=== PATIENT | male | born 1940 | race Two or more races ===

== ENCOUNTER 2017-03-11 10:14 | Emergency (ER) | payer OTHER ==
[2017-03-11 10:38] VITALS: BP 120/77; PULSE 82; RESP 20; TEMP 98.1; O2SAT 94
--- NOTE | 2017-03-11 11:09 | EDPHY ---
H & P Time Seen by Provider: 03/11/17 10:37 HPI/ROS: Chief complaint. Tick bite HPI. 76-year-old male presents emergency department with retained tick product. He believes he got the tick about 3 days ago. Yesterday he noticed it swollen next to his left nipple. He removed it himself but there is a small black object under the skin that appears to be retained part of the tech. He has no systemic complaints including fever or rash. ROS Constitutional. no fever/chills, no weakness Eyes. no problems with vision ENT. no sore throat, no nasal drainage Cardiovascular. no chest pain Respiratory. no shortness of breath, no cough Abdominal. no abdominal pain, no nausea/vomiting, no diarrhea . no problems urinating MS. no calf pain/swelling, no neck/back pain, no joint pain Skin. Tick bite Lymph. no swollen glands Neuro. no headache, no dizziness, no difficulty walking or with speech Past Medical/Surgical History: Cholecystectomy Social History: , nonsmoker, no alcohol Smoking Status: Former smoker Physical Exam: General Appearance: Alert well-developed male mild distress vital signs stable Eyes: Pupils equal and round no pallor or injection. ENT, Mouth: Mucous membranes are moist. Respiratory: There are no retractions, lungs are clear to auscultation. Cardiovascular: Regular rate and rhythm. Gastrointestinal: Abdomen is soft and nontender, no masses, bowel sounds normal. Neurological: Awake and alert, sensory and motor exams grossly normal. Skin: Some erythema and ecchymosis around the left nipple. There is a smell black apparent retained foreign body. Musculoskeletal: Neck is supple nontender. Extremities symmetrical, full range of motion. Psychiatric: Patient is oriented X 3, there is no agitation. Constitutional: Initial Vital Signs Temperature (C) 36.7 C 03/11/17 10:35 Heart Rate 82 03/11/17 10:35 Respiratory Rate 20 03/11/17 10:35 Blood Pressure 120/77 03/11/17 10:35 O2 Sat (%) 94 03/11/17 10:35 O2 Delivery Mode Room Air Allergies/Adverse Reactions: No Known Allergies Allergy (Unverified 03/11/17 10:37) Home Medications: Medication Instructions Recorded Aspirin 81mg (*) 03/11/17 Ativan 03/11/17 Crestor 03/11/17 Doxycycline Hyclate 100 mg PO BID #14 tab 03/11/17 Lexapro 03/11/17 traZODone 03/11/17 Medical Decision Making Procedures: 1% lidocaine with epinephrine is infiltrated. Using a 15 blade the black foreign body is removed. Copious saline irrigation is performed. No further evidence of foreign body. Antibiotic ointment and Band-Aid were applied ED Course/Re-evaluation: Patient and I discussed treatment plan including criteria for return importance of follow-up further evaluation. He expresses understanding and agreement Differential Diagnosis: I have considered tick fever, recommend spotted fever, Lyme disease. This appears to be retained body part from the tick. Departure - Departure Disposition: Home, Routine, Self-Care Clinical Impression: Tick bite Qualifiers: Encounter type: initial encounter Qualified Code(s): W57.XXXA - Bitten or stung by nonvenomous insect and other nonvenomous arthropods, initial encounter Condition: Good Instructions: Tick Bite (ED) Additional Instructions: Keep area clean and dry. Antibiotic ointment twice daily and Band-Aid for the next 2-3 days. Doxycycline as antibiotic. Return for fever, rash. Recheck in 2-3 days if not improved Referrals: GIOVANY GAN [Other] - As per Instructions Prescriptions: Doxycycline Hyclate 100 mg PO BID #14 tab
== END 2017-03-11 11:23 | disposition home or self-care (01) ==
LOC: CED 10:14
PROC: 0JC60ZZ Extirpation of Matter from Chest Subcutaneous Tissue and Fascia, Open Approach (ICD-10-PCS; principal; 2017-03-11)
DX: S20.162A Insect bite (nonvenomous) of breast, left breast, initial encounter (principal); Z79.82 Long term (current) use of aspirin; Z87.891 Personal history of nicotine dependence; W57.XXXA Bitten or stung by nonvenomous insect and other nonvenomous arthropods, initial encounter

== ENCOUNTER 2017-06-18 16:55 | Inpatient (IN) | payer OTHER ==
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
[2017-06-18 18:04] LABS: % IMMATURE GRANULYOCYTES 0.4 % (0.0-1.1); ABSOLUTE IMMATURE GRANULOCYTES 0.06 10^3/uL (0.00-0.10); ADD DIFF? NO; ADD MORPH? NO; ADD SCAN? NO; ATYPICAL LYMPHOCYTE FLAG 0 (0-99); FRAGMENT RBC FLAG 0 (0-99); HEMATOCRIT 43.5 % (40.0-51.0); HEMOGLOBIN 15.5 g/dL (13.7-17.5); LEFT SHIFT FLG 0 (0-99); LIPEMIA HEMOLYSIS FLAG 90 (0-99); MEAN CELL HEMOGLOBIN 32.4 pg (27.9-34.1); MEAN CELL HEMOGLOBIN CONCENTR. 35.6 g/dL (32.4-36.7); PLATELET CLUMPS FLAG 20 (0-99); PLATELET COUNT 180 10^3/uL (150-400); RED BLOOD CELL COUNT 4.78 10^6/uL (4.40-6.38); RED CELL DISTRIBUTION WIDTH 12.5 % (11.5-15.2)
[2017-06-18] MEDS ORDERED: NS 1,000 ML IV ONE (18:06)
--- NOTE | 2017-06-18 18:10 | CPEKG ---
Heart Rate: 76 RR Interval: 789 P-R Interval: 212 QRSD Interval: 96 QT Interval: 380 QTC Interval: 428 P Parks: -3 QRS Parks: -69 T Wave Parks: 52 EKG Severity - ABNORMAL ECG - EKG Impression: SINUS RHYTHM EKG Impression: LEFT ANTERIOR FASCICULAR BLOCK Electronically Signed By: Popeye Giron 18-Jun-2017 20:05:44
[2017-06-18 18:18] LABS: ANION GAP 13 mEq/L (8-16); CALCIUM 9.7 mg/dL (8.5-10.4); CARBON DIOXIDE 24 mEq/l (22-31); CHLORIDE 99 mEq/L (97-110); GLOMERULAR FILTRATION RATE > 60; GLUCOSE 102 mg/dL (70-100); POTASSIUM 4.3 mEq/L (3.5-5.2); SODIUM 136 mEq/L (134-144)
[2017-06-18] MEDS ORDERED: TEMAZEPAM 15 MG CAP PO PRN (21:16)
[2017-06-18] MEDS ORDERED: ACETAMINOPHEN 325 MG TAB PO PRN (21:16)
[2017-06-18] MEDS ORDERED: ONDANSETRON 4 MG/2 ML VIAL IVP PRN (21:16)
[2017-06-18] MEDS ORDERED: ONDANSETRON DISINTEGRATING 4 MG TAB PO PRN (21:16)
[2017-06-18] MEDS: oxyCODONE IR 5 MG TAB PO PRN (21:31)
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
--- NOTE | 2017-06-18 21:59 | SOAPPROG ---
SOSHANTEL Progress Note Assessment/Plan: Assessment/Plan: L femoral neck fracture - NPO after midnight - Plan for OR tomorrow, 06/19/17, for repair with Dr. Montague at 11:30am - NWB LLE - Ice for comfort and swelling - Pain management - VTE prophylaxis per medicine - Formal consult will be done in the am - Call with any questions or concerns 06/18/17 21:58 06/18/17 21:59 Objective: Vital Signs Temp Pulse Resp BP Pulse Ox 36.9 C 93 16 162/117 H 93 06/18/17 19:06 06/18/17 19:06 06/18/17 19:06 06/18/17 19:06 06/18/17 19:06 06/17/17 06/18/17 06/19/17 05:59 05:59 05:59 Intake Total 1000 Balance 1000 ICD10 Worksheet Patient Problems: Problems Problem Status Onset Hip fracture Acute
[2017-06-18] MEDS ORDERED: LORazepam 0.5 MG TAB PO PRN (23:13)
[2017-06-18] MEDS ORDERED: traZODone 50 MG TAB PO PRN (23:13)
[2017-06-19] MEDS: oxyCODONE IR 5 MG TAB PO PRN ×5 (02:10→21:41)
[2017-06-19 05:12] LABS: % IMMATURE GRANULYOCYTES 0.3 % (0.0-1.1); ABSOLUTE IMMATURE GRANULOCYTES 0.02 10^3/uL (0.00-0.10); ADD DIFF? NO; ADD MORPH? NO; ADD SCAN? NO; ATYPICAL LYMPHOCYTE FLAG 10 (0-99); FRAGMENT RBC FLAG 10 (0-99); HEMATOCRIT 37.9 % (40.0-51.0); HEMOGLOBIN 13.1 g/dL (13.7-17.5); LEFT SHIFT FLG 0 (0-99); LIPEMIA HEMOLYSIS FLAG 90 (0-99); MEAN CELL HEMOGLOBIN 32.7 pg (27.9-34.1); MEAN CELL HEMOGLOBIN CONCENTR. 34.6 g/dL (32.4-36.7); MEAN CELL VOLUME 94.5 fL (81.5-99.8); MEAN PLATELET VOLUME 9.2 fL (8.7-11.7); PLATELET CLUMPS FLAG 0 (0-99); PLATELET COUNT 155 10^3/uL (150-400); RED BLOOD CELL COUNT 4.01 10^6/uL (4.40-6.38); RED CELL DISTRIBUTION WIDTH 12.7 % (11.5-15.2)
[2017-06-19 05:40] LABS: ALANINE AMINOTRANSFERASE 88 IU/L (21-72); ALBUMIN 3.1 g/dL (3.5-5.0); ALKALINE PHOSPHATASE 52 IU/L (38-126); ANION GAP 9 mEq/L (8-16); ASPARTATE AMINOTRANSFERASE 120 IU/L (17-59); BILIRUBIN,TOTAL 1.1 mg/dL (0.1-1.4); CALCIUM 8.5 mg/dL (8.5-10.4); CARBON DIOXIDE 26 mEq/l (22-31); CHLORIDE 102 mEq/L (97-110); GLOMERULAR FILTRATION RATE > 60; GLUCOSE 81 mg/dL (70-100); POTASSIUM 4.3 mEq/L (3.5-5.2); SODIUM 137 mEq/L (134-144); TOTAL PROTEIN 5.9 g/dL (6.3-8.2)
[2017-06-19] MEDS ORDERED: ceFAZolin 2 GM/DEXTROSE 100 ML IV ONE (07:48)
[2017-06-19] MEDS ORDERED: LR 1,000 ML IV SCH (08:00)
[2017-06-19] MEDS ORDERED: BUPIVACAINE 0.25% 30 ML SDV ONE (09:21)
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
--- NOTE | 2017-06-19 09:41 | ECHO ---
[id number] + + [address] : : [place] [address] : : [phone] + + Adult Echocardiographic Report + ---+ :Name: BASIL WRIGHT TStudy Date: 06/19/2017 08:54 AM : : Hospital Admission Number: [id number] Location: 360: :: 1940 Gender: Male Height: 69 in : :Age: 77 yrs Race: [facility] Weight: 165 lb : :Reason For Study: Pre op hip/possible pulm edema : : BSA: 1.9 meters2 : + ---+ MMode/2D Measurements \T\ Calculations LVIDd: 3.6 cm EDV(Teich): 54.8 ml Ao root diam: 3.6 cm LA dimension: 3.7 cm Normal Measurement Values: + + :LVIDd (3.5-5.7cm) IVSd (0.6-1.1cm) LVPWd (0.6-1.1cm) Aortic Root (2.0-3.7cm)Left Atrium (1.5-4.0cm): :LV Vol(d) (76-115ml) LV Vol(s) (29-48ml) Ejec Fraction (50-65%)PV Lincoln (0.6- 1.2m/s) TV Lincoln (0.4-1.0m/s) : :MV E Lincoln (0.8-1.0m/s)MV A Lincoln (0.3-1.0m/s)LVOT Lincoln (0.7-1.2m/s) Asc Ao Lincoln ( 0.9-1.8m/s) : + + Doppler Measurements \T\ Calculations MV E max lincoln: 57.3 cm/sec Ao V2 max: 99.1 cm/sec MV A max lincoln: 65.2 cm/sec Ao max P.9 mmHg MV E/A: 0.88 Left Ventricle The left ventricle is normal in size. There is normal left ventricular wall thickness. Left ventricular systolic function is normal. Ejection Fraction = 65-70%. No regional wall motion abnormalities noted. Right Ventricle The right ventricle is normal in size and function. Atria The left atrial size is normal. Right atrial size is normal. The interatrial septum is intact with no evidence for an atrial septal defect. Mitral Valve The mitral valve is normal in structure and function. There is no evidence of mitral valve prolapse. There is no mitral valve stenosis. Tricuspid Valve Normal tricuspid valve. There is trace tricuspid regurgitation. Aortic Valve The aortic valve opens well. There is no aortic stenosis. There is no aortic insufficiency. Pulmonic Valve The pulmonic valve is not well visualized. There is no pulmonic valvular regurgitation. Great Vessels The aortic root is normal size. Pericardium/Pleural Trivial anterior pericardial effusion. Conclusion A complete two-dimensional transthoracic echocardiogram was performed (2D, M-mode, Doppler and color flow Doppler). Normal LV size and wall motion. Left ventricular systolic function is normal. Ejection Fraction = 65-70%. Grossly normal valves. There is trace tricuspid regurgitation. Trivial anterior pericardial effusion Final Reading Physician: Adolfo Faustin signed on 06/19/2017 09:40 AM Ordering Physician: Jarrett Dumont Performed By: Cinthia Bailon RDCS
[2017-06-19] MEDS: ENOXAPARIN 40 MG/0.4 ML SYR SC SCH (10:39)
[2017-06-19] MEDS ORDERED: CEFAZOLIN 2 GM/DEXTROSE/100 ML BAG IV ONE (11:27)
[2017-06-19] MEDS ORDERED: MIDAZOLAM 2 MG/2 ML VIAL IVP ONE ×2 (11:32→13:29)
--- NOTE | 2017-06-19 11:32 | PDANEPAE ---
ANE History of Present Illness left hip fx for pinning today ANE Past Medical History - Cardiovascular History Hx Hypertension: No Hx Arrhythmias: No Hx Chest Pain: No Hx Coronary Artery / Peripheral Vascular Disease: Yes Hx CHF / Valvular Disease: No Hx Palpitations: No - Pulmonary History Hx COPD: No Hx Asthma/Reactive Airway Disease: No Hx Recent Upper Respiratory Infection: No Hx Oxygen in Use at Home: No Hx Sleep Apnea: No Sleep Apnea Screening Result - Last Documented: Positive - Endocrine History Hx Diabetes: No ANE Review of Systems Review of systems is: negative - Exercise capacity Exercise capacity: >=4 METS ANE Patient History - Allergies Allergies/Adverse Reactions: No Known Allergies Allergy (Unverified 06/18/17 17:06) - Home Medications Home medications: home medication list seen and reviewed Home Medications: Acetaminophen [Tylenol ES 500 mg (*)] 1,000 mg PO Q8H PRN 06/18/17 [Last Taken 06/18/17] Aspirin [Aspirin 81mg (*)] 81 mg PO DAILY 06/18/17 [Last Taken 06/18/17] Escitalopram Oxalate [Lexapro] 5 mg PO HS 06/18/17 [Last Taken 06/17/17] Ibuprofen [Motrin (*)] 200 - 400 mg PO Q4-6PRN PRN 06/18/17 [Last Taken 06/18/17 ] LORazepam [Ativan (*)] 0.5 mg PO BID PRN 06/18/17 [Last Taken 06/16/17] Rosuvastatin Calcium [Crestor 10mg (RX)] 10 mg PO HS 06/18/17 [Last Taken ] traZODone [traZODONE 50MG (*)] 25 - 50 mg PO HS PRN 06/18/17 [Last Taken ] - NPO status NPO Since - Liquids (Date): 06/18/17 NPO Since - Liquids (Time): 23:00 NPO Since - Solids (Date): 06/18/17 NPO Since - Solids (Time): 23:00 - Anes Hx Anes Hx: no prior problems - Smoking Hx Smoking Status: Former smoker ANE Labs/Vital Signs - Labs Result Diagrams: 06/19/17 04:47 06/19/17 04:47 - Vital Signs Blood Pressure: 123/72 Heart Rate: 85 Respiratory Rate: 16 O2 Sat (%): 91 Height: 175.26 cm Weight: 74.843 kg ANE Physical Exam - Airway Neck exam: FROM Mallampati Score: Class 1 Mouth exam: normal dental/mouth exam - Pulmonary Pulmonary: no respiratory distress - Cardiovascular Cardiovascular: regular rate and rhythym - ASA Status ASA Status: II ANE Anesthesia Plan Anesthesia Plan: GA w LMA
[2017-06-19] MEDS ORDERED: DEXAMETHASONE 4 MG/ML VIAL ONE (11:37)
[2017-06-19] MEDS ORDERED: fentaNYL 100 MCG/2 ML INJ ONE ×3 (11:37→14:30)
[2017-06-19] MEDS ORDERED: LIDOCAINE 2% 5 ML SDV ONE (11:37)
[2017-06-19] MEDS ORDERED: PROPOFOL 200 MG/20 ML VIAL ONE ×2 (11:37→13:01)
[2017-06-19] MEDS ORDERED: LR 1,000 ML IV ONE (11:37)
[2017-06-19] MEDS ORDERED: PROMETHAZINE HCL 25 MG/ML INJ IVP PRN (13:29)
[2017-06-19] MEDS ORDERED: NALOXONE HCL 0.4 MG/ML INJ IVP PRN (13:29)
[2017-06-19] MEDS ORDERED: OXYCODONE/APAP 5/325 TAB PO PRN (13:29)
[2017-06-19] MEDS ORDERED: ONDANSETRON 4 MG/2 ML VIAL IVP PRN (13:29)
--- NOTE | 2017-06-19 13:50 | POSTANESTH ---
Post Anesthetic Evaluation Cardiovascular Status: Normal, Stable Respiratory Status: Normal, Stable Level of Consciousness/Mental Status: Moderately Sleepy Pain Control: Adequate, Prn Tx Ordered Nausea/Vomiting Control: Adequate, Prn Tx Ordered Complications Possibly Related to Anesthesia: None Noted
--- NOTE | 2017-06-19 13:54 | POSTOPPROG ---
Post Op Note Date of Operation: 06/19/17 Surgeon: Harvey Montague In Service Education Teacher: Dipti Jorge Anesthesiologist: Dr. Mayo Anesthesia: GET(General Endotracheal) Pre-op Diagnosis: Left femoral neck fracture Post-op Diagnosis: Left femoral neck fracture Procedure: Closed reduction screw fixation L femoral neck fx Findings: See full dictation Inf/Abcess present in the surg proc area at time of surgery?: No Depth: Organ Space EBL: 50-100
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
[2017-06-19] MEDS: fentaNYL 100 MCG/2 ML INJ IVP PRN ×2 (14:33→14:38)
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
[2017-06-19] MEDS ORDERED: HYDROmorphONE/DILAUDID 1 MG/ML SYR ONE (14:46)
[2017-06-19] MEDS: HYDROmorphONE/DILAUDID 1 MG/ML SYR IVP PRN ×3 (14:47→15:07)
[2017-06-19] MEDS ORDERED: ROSUVASTATIN CALCIUM 10 MG TAB PO SCH (21:00)
[2017-06-19] MEDS ORDERED: ESCITALOPRAM OXALATE 10 MG TAB PO SCH (21:00)
[2017-06-19] MEDS: ACETAMINOPHEN 500 MG TAB PO PRN (21:39)
[2017-06-19] MEDS: ceFAZolin 2 GM/DEXTROSE 100 ML IV SCH (21:43)
[2017-06-20] MEDS: ceFAZolin 2 GM/DEXTROSE 100 ML IV SCH ×2 (05:29→12:42)
[2017-06-20] MEDS: ENOXAPARIN 40 MG/0.4 ML SYR SC SCH (08:16)
[2017-06-20 11:50] VITALS: BP 161/86; PULSE 89; RESP 16; TEMP 98.4; O2SAT 93
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
[2017-06-20] MEDS: ACETAMINOPHEN 500 MG TAB PO PRN (12:10)
--- NOTE | 2017-06-20 12:28 | SOAPPROG ---
[facility] Progress Note Assessment/Plan: Assessment/Plan: L femoral neck fracture s/p closed reduction and screw fixation - Touch-down weight bearing - Ice for comfort and swelling - Pain management - Enoxaparin 40mg daily x 14 days - continue PT/OT - Okay for discharge after completion of prophylactic antibiotics 06/18/17 21:58 06/18/17 21:59 06/20/17 12:25 Subjective: Pt states he is feeling well with minimal pain. He is ready to be discharged. Pt might want to follow-up with an orthopedic provider in [place]. Pt denies fever, chills, chest pain, SOB, abdominal pain, N/V/D, numbness, tingling and calf pain. Objective: Vital Signs Temp Pulse Resp BP Pulse Ox 36.9 C 89 16 161/86 H 93 06/20/17 11:50 06/20/17 11:50 06/20/17 11:50 06/20/17 11:50 06/20/17 11:50 Laboratory Results 06/19/17 04:47 06/19/17 04:47 06/19/17 06/20/17 06/21/17 05:59 05:59 05:59 Intake Total 1400 200 Output Total 500 1250 Balance 900 -1050 Physical Exam - Physical Exam General Appearance: alert, no apparent distress Cardiac/Chest: normal peripheral pulses Skin: normal color, warm/dry, other (Post-operative dressing intact with out any drainage) Extremities: No pedal edema, No calf tenderness, No swelling, No Harley's sign Neuro/Psych: no motor/sensory deficits, alert, normal mood/affect, oriented x 3 ICD10 Worksheet Patient Problems: Problems Problem Status Onset Hip fracture Acute
== END 2017-06-20 14:14 | disposition home or self-care (01) | DRG 482 ==
LOC: CED 16:55 → CEDHOLD 18:07 → F3N 19:53
PROVIDERS: ADMIT Student in an Organized Health Care Education/Training Program; ATTEND Student in an Organized Health Care Education/Training Program
PROC: 0QS704Z Reposition Left Upper Femur with Internal Fixation Device, Open Approach (ICD-10-PCS; principal; 2017-06-19 11:15)
DX: S72.002A Fracture of unspecified part of neck of left femur, initial encounter for closed fracture (principal); V18.0XXA Pedal cycle driver injured in noncollision transport accident in nontraffic accident, initial encounter; Y93.55 Activity, bike riding; Z87.891 Personal history of nicotine dependence; E78.5 Hyperlipidemia, unspecified; F32.9 Major depressive disorder, single episode, unspecified; I25.10 Atherosclerotic heart disease of native coronary artery without angina pectoris; Z79.82 Long term (current) use of aspirin
CPT/HCPCS: 71020-PO; 73502-PO; 80048-PO; 85025-PO; 96374; 97110-GP; 97161-GP; 97165-GO; 97535-GO; C1713; C1769; G8978-GP-CI; G8979-GP-CI; G8980-GP-CI; G8987-GO-CI; G8989-GO-CI; J0171; J0690; J1100; J1170; J1650; J2250; J2704; J3010